=== PATIENT | male | born 1975 | race Caucasian/White ===

== ENCOUNTER → 2024-04-27 | Outpatient (REF) | payer OTHER, SELFPAY | LOC: DHSLP | PROVIDERS: ATTENDING PHYSICIAN Internal Medicine; FAMILY PHYSICIAN Family Medicine | DX: G47.30 Sleep apnea, unspecified (principal); R06.83 Snoring | CPT/HCPCS: 95800 ==

== ENCOUNTER 2025-01-23 05:01 | Emergency (ER) | payer OTHER, SELFPAY ==
[2025-01-23 05:10] VITALS: BP 132/90
[2025-01-23 05:41] LABS: COVID-19 Antigen Negative (Negative)
--- NOTE | 2025-01-23 07:27 | ED.GENMED ---
History of Present Illness
General
Chief Complaint: Cough
Source: patient
Exam Limitations: none
Time Seen by Provider: 01/23/25 07:19
Nursing documentation reviewed up to this point in time: agreed with
History of Present Illness
History of Present Illness:
49-year-old male with no reported chronic medical issues, non-smoker presents to the ER for evaluation of cough. Patient reports symptoms started about 4 days ago and last night he had trouble sleeping because of his cough. He says that he has
been bringing up clear sputum. He has not noted any fever or chills. He has not had any chest pain or shortness of breath. He denies any GI symptoms. Mild congestion no sore throat. No headache. Denies any other complaints.
Review of Systems
Review of Systems
All Other Systems: ROS reviewed and negative except as documented in HPI and ROS
Constitutional: Denies fever or chills
EENT: Reports runny nose; Denies sore throat
Respiratory: Reports cough; Denies trouble breathing
Cardiac: Denies chest pain
ABD/GI: Denies abdominal pain, nausea, vomiting or diarrhea
Neurological: Denies dizzy or headache
Phy Exam
Physical Exam
Physical Exam:
General: Awake, alert; no acute distress
Head: Normocephalic, atraumatic
Eyes: Conjunctiva normal
Throat: Airway intact, handling secretions
Neck: Trachea midline
Lungs: Bilateral scattered wheezing and frequent coughing; normal respiratory rate, normal work of breathing
Heart: Regular rate and rhythm, no murmurs, gallops, or rubs
Neuro: No gross deficits
Scores
Heart Failure Risk
Heart Failure Risk Score: Not Applicable
Heart Score for Chest Pain Patients
STEMI patient?: Not applicable
Withdrawal Assessment of Alcohol
Withdrawal Assessment Completed?: Not applicable
Course
Orders/Labs/Results
Orders:
Orders
01/23/25 05:14
Chest [CR Chest - 2 Views ] Urgent
Comment:
Reason For Exam: persistent productive cough
01/23/25 05:17
COVID-19 Antigen Urgent
Source: Nasal Swab
Influenza A+B Rapid Molecular Urgent
TERESA Source: Nasal Swab
Specimen Description:
01/23/25 07:27
Ipratropium/Albuterol Sulfate [Duoneb] 3 ml INH R NOW STA
Prednisone [Deltasone] 50 mg PO NOW STA
01/23/25 08:03
Azithromycin [Zithromax] 500 mg PO NOW STA
Vital Signs
Initial and Last Documented VS:
Initial Vital Signs
Temp Pulse Resp BP Pulse Ox
36.4 C 54 16 132/90 100
01/23/25 05:10 01/23/25 05:10 01/23/25 05:10 01/23/25 05:10 01/23/25 05:10
Last Documented Vital Signs
Temp Pulse Resp BP Pulse Ox
36.4 C 54 16 132/90 100
01/23/25 05:10 01/23/25 05:10 01/23/25 05:10 01/23/25 05:10 01/23/25 05:10
MDM/Problems Addressed
Differential Diagnosis Includes:
Bronchitis, pneumonia, URI
MDM/Problems Addressed:
49-year-old male presents with productive cough x 4 days worse last night. Vitals and exam as above. He had COVID and flu swab sent which were negative, chest x-ray reviewed by me shows no pneumonia. Suspect acute bronchitis. Treat with steroid
and neb and reassess.
Patient still with faint wheezing but improved after DuoNeb and steroid. Normal respiratory rate, normal work of breathing, normal pulse ox on room air. Suspect acute bronchitis and I think he is stable for discharge and outpatient treatment.
Will prescribe steroid, cover with antibiotics in case of mild occult pneumonia. Treat with albuterol, benzonatate. He feels comfortable with this plan. We spoke about return precautions all questions answered.
*Radiology
Radiology exam reviewed: preliminary read by ED provider and radiology read reviewed
*Pulse Oximetry
Patient hypoxic: no
*Critical Care Note
Total Time (30-74mins, 75-104mins- exclusive of procedures): Not Applicable
Data Reviewed
Source: patient
ED Attending Note
-
Portions of this chart may have been created with voice recognition software.� Occasional wrong word or��sound alike� substitutions may have occurred due to the inherent limitations of voice recognition software.
Discharge Plan
Departure
Patient Disposition: Home (Routine Discharge)
Date of Disposition: 01/23/25
Time of Disposition: 08:04
Patient with high blood pressure during this ER visit?: No
Discharge Problem:
Acute bronchitis
Instructions: Acute Bronchitis, Adult (DC)
Prescriptions:
New
prednisone 50 mg tablet
50 mg PO DAILY Qty: 4 0RF
benzonatate 200 mg capsule
200 mg PO BID PRN (Reason: Cough) Qty: 10 0RF
albuterol sulfate 90 mcg/actuation HFA aerosol inhaler
2 puff inhalation Q6H PRN (Reason: shortness of breath or wheezing) Qty: 6.7 0RF
azithromycin [Zithromax] 250 mg tablet
250 mg PO DAILY Qty: 4 0RF
Referrals:
Nuno Dias DO [Family Provider] - Follow up in 5-7 days
Activity Restrictions/Additional Instructions:
Thank you for visiting the Emergency Department at [facility].
1. Please schedule a follow up appointment as directed. Call first thing tomorrow morning to make an appointment.
2. If indicated, please take your medications as instructed and indicated on discharge paperwork.
3. If any of your symptoms do not improve, or persist, or become more severe within 6-12 hours, please return to the emergency department for further care.
4. Please return to the emergency department if you develop a headache, neck pain/stiffness, fever greater than 100.4F, chest pain, shortness of breath, persistent nausea, vomiting, slurred speech, difficulty walking, numbness/tingling, weakness,
signs of infection or any other symptoms that are worrisome to you.
Please call [phone] if you have any questions.
Interventions
Interventions:
*Risk Screen - Suicide Last Done: 01/23/25 05:10
*General Assessment Last Done: 01/23/25 06:11
*Neglect/Abuse Screening Last Done: 01/23/25 06:11
ED- Fall Risk Assessment Last Done: 01/23/25 06:11
*ED COVID-19 Vaccine History Last Done: 01/23/25 06:11
ED- Pulmonary Assessment Last Done: 01/23/25 06:11
Discharge Date and Time
Print Language: GEORGIAN
[2025-01-23] MEDS: DUONEB 3 ML INH (07:35)
[2025-01-23] MEDS: DELTASONE 50 MG PO (07:36)
[2025-01-23] MEDS: ZITHROMAX 500 MG PO (08:06)
[2025-01-23 08:31] VITALS: BP 128/70
== END 2025-01-23 08:32 | disposition home or self-care (01) ==
LOC: EMR 05:01
PROVIDERS: Emergency Medicine; EMERGENCY PHYSICIAN Emergency Medicine; FAMILY PHYSICIAN Family Medicine
DX: J20.9 Acute bronchitis, unspecified (principal); Z11.52 Encounter for screening for COVID-19
CPT/HCPCS: 94640; 99284; 71046; 87502; 87811

== ENCOUNTER → 2025-03-16 11:01 | Outpatient (REF) | payer SELFPAY | LOC: RAD 11:01 | PROVIDERS: ATTENDING PHYSICIAN Family Medicine | DX: Z13.6 Encounter for screening for cardiovascular disorders (principal) | CPT/HCPCS: 75571 ==